=== PATIENT | male | born 1990 | race American Indian/Alaskan Native ===

== ENCOUNTER 2016-10-23 04:56 | Emergency (ER) | payer SELFPAY ==
[2016-10-23 05:20] VITALS: BP 120/90
--- NOTE | 2016-10-23 07:00 | Emergency Department Report ---
HPI - General Chief Complaint: Dental/Oral Time Seen by Provider: 10/23/16 06:50 - HPI HPI: Patient here reported that he woke up this morning and he was brushing his tooth and he started having pain and is right upper gum area 9 out of 10. Denies any fever or chills. Denies any nausea vomiting or diarrhea. Patient does not have a dentist and he denies any trauma. ED Past Medical Hx - Past Medical History Previous Medical History?: No - Surgical History Past Surgical History?: Yes Additional Surgical History: tonsillectomy - Family History Family history: no significant - Social History Smoking Status: Former Smoker Substance Use Type: None - Medications Home Medications: Home Medications Medication Instructions Recorded Confirmed Last Taken Type Azithromycin [Zithromax] 250 mg PO QDAY #4 tablet 06/19/15 Unknown Rx Promethazine /Codeine 5 ml PO Q6H PRN #120 ml 06/19/15 Unknown Rx [Phenergan/Codeine 6.25-10 mg/5Ml] traMADol [Ultram 50 MG tab] 50 mg PO Q6HR PRN #16 tablet 06/19/15 Unknown Rx Clindamycin [Clindamycin CAP] 300 mg PO Q8H #30 cap 10/23/16 Unknown Rx Ibuprofen [Motrin] 600 mg PO Q8H PRN #15 tablet 10/23/16 Unknown Rx ED Review of Systems ROS: Stated complaint: GUMS SWELLING Other details as noted in HPI Comment: All other systems reviewed and negative Constitutional: denies: chills, fever ENT: dental pain. denies: ear pain, throat pain, congestion Respiratory: no symptoms reported Cardiovascular: denies: chest pain, palpitations, edema, syncope Gastrointestinal: denies: nausea, vomiting Musculoskeletal: denies: back pain, arthralgia Skin: denies: rash Neurological: denies: headache, weakness Physical Exam - Physical Exam Vital Signs: Vital Signs 10/23/16 05:14 Temperature 99.3 F Pulse Rate 60 Respiratory 18 Rate Blood Pressure 120/90 O2 Sat by Pulse 97 Oximetry General: This is a 26-year-old male well-nourished well-developed in no acute distress. Physical Exam: Head: Normocephalic atraumatic Mouth: Moist, no pharyngeal exudate or erythema. Uvula is midline and oral airway is patent. No gingival enlargement. dental tenderness right #30 and 32. No induration noted.. No facial swelling. No peritonsillar abscesses. Neck: Supple, no C-spine tenderness, no tracheal deviation. Nontender to palpate. no adenopathy Ears: Bilateral TMs pearly yoder.bilateral EAC without any redness swelling or drainage Eyes: Bilateral pupils equal and reactive to light, bilateral EOM intact. Bilateral sclera and conjunctiva without injection. Normal accommodation Nose: Mucosa moist, normal mucosa .maxillary and frontal sinus non-tender to palpate. Lungs: Clear to auscultate bilaterally no rhonchi wheezes or rales. Normal work of breathing extremity; No CCE. +2 pulses. No neurovascular compromise Cardiovascular: S1-S2, regular rate rhythm. No murmurs. Skin: clean Dry and intact no rash no lesions Psych: Normal mood and behavior ED Course Vital Signs 10/23/16 05:14 Temperature 99.3 F Pulse Rate 60 Respiratory 18 Rate Blood Pressure 120/90 O2 Sat by Pulse 97 Oximetry - Reevaluation(s) Reevaluation #1: 10/23/16 07:20 She received Motrin 600 mg in emergency room for toothache. ED Medical Decision Making - Medical Decision Making Patient here for toothache and gum pain. Found to have mild cellulitis oromucosa. No gingival inflammation noted. Patient given Motrin 600 mg by mouth and emergency room to manage pain. I discussed with him that he will need to follow-up with a dentist Noelle referring to. Patient discharged home with prescription for clindamycin and Motrin. Critical care attestation.: If time is entered above; I have spent that time in minutes in the direct care of this critically ill patient, excluding procedure time. ED Disposition Clinical Impression: Oral cellulitis, Atypical toothache Disposition: DISCHARGED TO HOME OR SELFCARE Is pt being admited?: No Does the pt Need Aspirin: No Condition: Stable Instructions: Cellulitis (ED), Toothache (ED) Additional Instructions: Follow-up with dentist as discussed. Take antibiotic as prescribed Prescriptions: Clindamycin [Clindamycin CAP] 300 mg PO Q8H #30 cap Ibuprofen [Motrin] 600 mg PO Q8H PRN #15 tablet PRN Reason: Pain Referrals: [facility] [Outside] - 11/02/16 Forms: Work/School Release Form(ED)
[2016-10-23] MEDS ORDERED: MOTRIN PO ONE (07:18)
== END 2016-10-23 07:35 | disposition home or self-care (01) ==
LOC: ED 04:56
DX: K12.2 Cellulitis and abscess of mouth (principal); K08.89 Other specified disorders of teeth and supporting structures; Z87.891 Personal history of nicotine dependence; Z90.89 Acquired absence of other organs
CPT/HCPCS: 99282

== ENCOUNTER 2018-12-08 01:33 | Emergency (ER) | payer OTHER ==
[2018-12-08 03:55] LABS: Basophils # (Auto) 0.1 K/mm3 (0.0-0.1); Eosinophils # (Auto) 0.2 K/mm3 (0.0-0.4); Hematocrit 41.6 % (35.5-45.6); Hemoglobin 14.5 gm/dl (11.8-15.2); Lymphocytes # (Auto) 2.5 K/mm3 (1.2-5.4); Lymphocytes % (Auto) 46.7 % (13.4-35.0); Mean Corpuscular HGB Conc 35 % (32-34); Mean Corpuscular Volume 89 fl (84-94); Monocytes # (Auto) 0.5 K/mm3 (0.0-0.8); Monocytes % (Auto) 8.7 % (0.0-7.3); Platelet Count 198 K/mm3 (140-440); Red Blood Count 4.67 M/mm3 (3.65-5.03)
[2018-12-08 04:17] LABS: BUN/Creatinine Ratio 16; Blood Urea Nitrogen 13 mg/dL (9-20); Calcium 9.3 mg/dL (8.4-10.2); Hemolysis Index 10
--- NOTE | 2018-12-08 04:54 | XRay Report ---
PROCEDURE: XR CHEST ROUTINE 2V TECHNIQUE: PA and lateral chest radiographs were obtained. HISTORY: cough COMPARISONS: None. FINDINGS: No infiltrate, pleural effusion, or pneumothorax seen. The cardiomediastinal silhouette is normal. IMPRESSION: Negative chest.. This document is electronically signed by Greg Simpson MD., December 08 2018 04:52:38 AM ET
[2018-12-08] MEDS ORDERED: IBUPROFEN PO ONE (07:38)
--- NOTE | 2018-12-08 07:39 | Emergency Department Report ---
Minor Respiratory - HPI Chief Complaint: Dyspnea/Respdistress Stated Complaint: SOB/DIZZINESS Time Seen by Provider: 12/08/18 07:10 Duration: 2 Days Severity: mild Minor Respiratory: Yes Sore Throat, Yes Able to Tolerate Fluids, Yes Cough, No Rhinorrhea, No Ear Pain, No Sick Contacts, No Hemoptysis, No Chest Pain, No Shortness of Breath, No Fever Other History: 28 yo with sinus pain an cough for 3 days. Has taken nothing at home to feel better. VS normal- RN asked to document. ED Review of Systems ROS: Stated complaint: SOB/DIZZINESS Other details as noted in HPI Comment: All other systems reviewed and negative ED Past Medical Hx - Past Medical History Previous Medical History?: No - Surgical History Past Surgical History?: No Additional Surgical History: tonsillectomy - Family History Family history: no significant - Social History Smoking Status: Never Smoker Substance Use Type: None - Medications Home Medications: Home Medications Medication Instructions Recorded Confirmed Last Taken Type Amoxicillin [Trimox CAP] 500 mg PO BID #20 capsule 12/08/18 Unknown Rx Ibuprofen [Motrin] 800 mg PO Q8HR PRN #25 tablet 12/08/18 Unknown Rx predniSONE [Deltasone] 20 mg PO DAILY #5 tablet 12/08/18 Unknown Rx Minor Respiratory Exam - Exam General: Vital signs noted. No distress. Alert and acting appropriately. WDWN patient in NAD VS per RN flow sheet Alert and oriented to person, place and time. S1-S2. No S3 or S4. No systolic or diastolic murmur. No JVD. No pitting edema. Lungs clear to auscultation bilaterally anteriorly and posteriorly. Abdomen soft nontender bowel sounds X4 Moves all extremities well. Mood and affect appropriate. HEENT: Yes Moist Mucous Membranes, No Pharyngeal Erythema, No Pharyngeal Exudates, No Rhinorrhea Ear: Neither TM Bulge, Neither TM Erythema, Neither EAC Pain, Neither EAC Discharge Neck: Yes Supple, No Adenopathy Lungs: Yes Good Air Exchange, No Wheezes Heart: Yes Regular, No Murmur Abdomen: No Tenderness, No Peritoneal Signs, No Normal Bowel Sounds Skin: No Rash Neurologic: Alert and oriented, no deficits. Musculoskeletal: Unremarkable. ED Medical Decision Making - Lab Data Result diagrams: 12/08/18 03:37 12/08/18 03:37 - Medical Decision Making Lab Results 12/08/18 12/08/18 Range/Units 03:37 03:37 WBC 5.3 (4.5-11.0) K/mm3 RBC 4.67 (3.65-5.03) M/mm3 Hgb 14.5 (11.8-15.2) gm/dl Hct 41.6 (35.5-45.6) % MCV 89 (84-94) fl MCH 31 (28-32) pg MCHC 35 H (32-34) % RDW 13.0 L (13.2-15.2) % Plt Count 198 (140-440) K/mm3 Lymph % (Auto) 46.7 H (13.4-35.0) % [place] % (Auto) 8.7 H (0.0-7.3) % Eos % (Auto) 3.0 (0.0-4.3) % Baso % (Auto) 1.0 (0.0-1.8) % Lymph # 2.5 (1.2-5.4) K/mm3 [place] # 0.5 (0.0-0.8) K/mm3 Eos # 0.2 (0.0-0.4) K/mm3 Baso # 0.1 (0.0-0.1) K/mm3 Seg Neutrophils % 40.6 (40.0-70.0) % Seg Neutrophils # 2.2 (1.8-7.7) K/mm3 Sodium 140 (137-145) mmol/L Potassium 3.8 (3.6-5.0) mmol/L Chloride 104.0 (98-107) mmol/L Carbon Dioxide 25 (22-30) mmol/L Anion Gap 15 mmol/L BUN 13 (9-20) mg/dL Creatinine 0.8 (0.8-1.5) mg/dL Estimated GFR > 60 ml/min BUN/Creatinine Ratio 16 % Glucose 89 (75-100) mg/dL Calcium 9.3 (8.4-10.2) mg/dL xray noted non toxic taking po no fever dc home with dc plan of care. Critical care attestation.: If time is entered above; I have spent that time in minutes in the direct care of this critically ill patient, excluding procedure time. ED Disposition Clinical Impression: URTI (acute upper respiratory infection), Sinusitis Disposition: DC-01 TO HOME OR SELFCARE Is pt being admited?: No Does the pt Need Aspirin: No Condition: Stable Instructions: Upper Respiratory Infection (ED) Additional Instructions: DIET TOLERATED MEDS ORDERED TODAY IN ER FOLLOW INSTRUCTIONS ON THE BOTTLE FOLLOW UP PCP WITHIN 48 HOURS TO ENSURE YOU ARE GETTING BETTER REFERRAL BELOW ACTIVITY TOLERATED MOTRIN OR TYLENOL FOR PAIN OR FEVER RETURN TO THE ER FOR WORSENING SYMPTOMS NOT RELIEVED BY YOUR MEDICATIONS. XRAY NORMAL Prescriptions: predniSONE [Deltasone] 20 mg PO DAILY #5 tablet Ibuprofen [Motrin] 800 mg PO Q8HR PRN #25 tablet PRN Reason: Pain , Severe (7-10) Amoxicillin [Trimox CAP] 500 mg PO BID #20 capsule Referrals: PRABHAKAR MCGREGOR MD [Staff Physician] - 3-5 Days Time of Disposition: 07:55
== END 2018-12-08 08:32 | disposition home or self-care (01) ==
LOC: ED 01:33
DX: J06.9 Acute upper respiratory infection, unspecified (principal); Z90.89 Acquired absence of other organs
CPT/HCPCS: 36415; 71046; 80048; 85025